=== PATIENT | male | born 1955 | race African-American/Black ===

== ENCOUNTER 2018-10-29 13:34 | Emergency (ER) | payer MEDICAID ==
[~2018-10-29] VITALS: Ht 180.3 cm; Wt 95.0 kg
[2018-10-29] MEDS ORDERED: MORPHINE SULFATE 10 MG/ML CPJ IM ONE (17:15)
[2018-10-29 18:38] VITALS: BP 153/71
== END 2018-10-29 18:38 | disposition home or self-care (01) ==
LOC: ER 17:48
DX: G89.29 Other chronic pain (principal); M54.9 Dorsalgia, unspecified; M54.2 Cervicalgia; M79.10 Myalgia, unspecified site; G58.9 Mononeuropathy, unspecified; F45.42 Pain disorder with related psychological factors; J45.909 Unspecified asthma, uncomplicated; I10 Essential (primary) hypertension; H40.9 Unspecified glaucoma
CPT/HCPCS: 96372; 99283; J2270